=== PATIENT | male | born 1960 | race Caucasian/White ===

== ENCOUNTER → 2020-03-01 11:44 | Outpatient (CLI) | payer OTHER, SELFPAY ==
[2020-03-01 12:42] LABS: Cholesterol 207 mg/dL (140-199); HDL Cholesterol 64 mg/dL (40-60); LDL Cholesterol Calculated 99 mg/dL (<100); Triglycerides 218 mg/dL (35-150)
== END ==
PROVIDERS: PCP Family Medicine; Referring Provider Internal Medicine Cardiovascular Disease; Visit Provider Internal Medicine Cardiovascular Disease
DX: I25.10 Atherosclerotic heart disease of native coronary artery without angina pectoris (principal)
CPT/HCPCS: 36415; 80061

== ENCOUNTER → 2021-03-02 14:05 | Outpatient (CLI) | payer OTHER, SELFPAY ==
[2021-03-02 21:21] LABS: Hep C Virus Ab w/Reflex Quant NEGATIVE s/c (NEGATIVE)
[2021-03-03 08:11] LABS: Alpha 1 Anti Trypsin 129 mg/dL (101-187)
[2021-03-04 14:07] LABS: ANA Screen, IFA Negative (.)
[2021-03-04 16:58] LABS: Smooth Muscle Antibody 11 Units (0-19)
== END ==
PROVIDERS: PCP Family Medicine; Referring Provider Nurse Practitioner; Visit Provider Nurse Practitioner
DX: R79.89 Other specified abnormal findings of blood chemistry (principal)
CPT/HCPCS: 36415; 81256; 82103; 83516; 86038; 86803

== ENCOUNTER → 2024-10-01 11:46 | Outpatient (CLI) | payer OTHER, SELFPAY ==
--- NOTE | 2024-10-01 11:49 | DI.MRI.S_ITS ---
PROCEDURE: MR HEAD/BRAIN WO/W CON INDICATIONS: SEIZURE DISORDER TECHNIQUE: Noncontrast axial T1 spin echo, axial T2 fast spin echo, sagittal and axial FLAIR, axial gradient echo, axial diffusion and ADC, coronal thin-slice T2 FSE through the brain. Optional contrast, followed by axial and coronal and sagittal 3D VIBE or T1 spin echo with fat saturation sequences through the brain. COMPARISON: Outside Film, CT, CT FACIAL BONES WITHOUT CONTRAST, 10/14/2023, 14:13. FINDINGS: Image quality: Excellent. CSF spaces: Ventricles are normal in size and shape. Basal cisterns are patent. No extra-axial fluid collections. Brain: Multiple foci of abnormal T2 weighted hyperintensity can be seen, including within the periventricular deep white matter. A few of the periventricular lesions demonstrate a perpendicular orientation to the lateral ventricles. No definite brainstem lesions or cerebellar lesions are seen. There is involvement of the corpus callosum. A few of the larger lesions demonstrate low signal on T1 weighted imaging. These lesions do not enhance. No intracranial bleeds or mass effects. No abnormal intracranial enhancement. Lindsay-white matter interface appears intact. Diffusion weighted images demonstrate no acute ischemic insults. Brainstem appear normal. Normal intravascular flow voids are present. The hippocampal regions appear normal and symmetric in morphology. Skull and face: Calvarial marrow signal is normal. Orbits appear normal. Sinuses: There is moderate mucosal thickening within the ethmoid air cells, with milder mucosal thickening seen elsewhere within the paranasal sinuses. No abnormal fluid is seen within the mastoid air cells. IMPRESSION: Abnormal brain MRI, with multiple foci of nonenhancing T2 weighted hyperintensity, including involving the corpus callosum. Based upon the imaging appearance, there is strong suspicion for multiple sclerosis. Please correlate with patient history. The hippocampi demonstrate a normal, symmetric appearance. No masses or abnormal enhancement can be seen. Dictated by: Art Landeros M.D. on 10/01/2024 at 16:54 Approved by: Art Landeros M.D. on 10/01/2024 at 16:57
== END ==
PROVIDERS: PCP Family Medicine; Referring Provider Psychiatry & Neurology Neurology; Visit Provider Psychiatry & Neurology Neurology
DX: G40.909 Epilepsy, unspecified, not intractable, without status epilepticus (principal); R93.0 Abnormal findings on diagnostic imaging of skull and head, not elsewhere classified
CPT/HCPCS: 70553; A9579

== ENCOUNTER → 2025-01-30 10:08 | Outpatient (CLI) | payer OTHER, SELFPAY ==
--- NOTE | 2025-01-30 | DI.MRI.S_ITS ---
PROCEDURE: MR CERVICAL SPINE WO/W CON INDICATIONS: Rule out ms TECHNIQUE: Noncontrast sagittal T1 spin echo and T2 fast spin echo, sagittal STIR, sagittal PD fast spin echo, foraminal oblique sagittal T2 fast spin echo, axial gradient echo or T2 fast spin echo through the cervical spine. After the administration of contrast, sagittal and axial T1 spin echo with fat saturation through the cervical spine. COMPARISON: None. FINDINGS: Image quality: Excellent. Alignment and curvature: There is normal bony alignment. Marrow: Marrow demonstrates normal overall signal. Spinal cord: White matter lesions are seen throughout the cervical cord. For example within the posterior aspect of the cord at C1, left aspect of the cord at C3 (/), mid aspect of the cord at C5-C6 (/29), left aspect of the cord C6-C7 (/33). No suspicious intramedullary enhancement. No cerebellar tonsillar herniation. Paraspinous soft tissues: No paravertebral masses or suspicious enhancement. C2-C3: Disc desiccation and minimal posterior disc osteophyte complex. No significant central canal or neural foraminal stenosis. C3-C4: Disc desiccation and posterior disc osteophyte complex. Facet and uncovertebral arthropathy. No significant central canal stenosis. Severe right and moderate left neural foraminal stenosis. C4-C5: Disc desiccation. Facet and uncovertebral arthropathy. No central canal stenosis. Moderate left and mild right neural foraminal stenosis. C5-C6: Disc desiccation and mild posterior disc osteophyte complex. Facet and uncovertebral arthropathy. No significant central canal stenosis. Moderate bilateral neural foraminal stenosis. C6-C7: Disc desiccation. Facet and uncovertebral arthropathy. No central canal stenosis. Mild bilateral neural foraminal stenosis. C7-T1: No central canal or neural foraminal stenosis. IMPRESSION: Multiple white matter lesions throughout the cervical cord without enhancement. Multilevel degenerative changes of the cervical spine as described above. Dictated by: Salvador Coley M.D. on 02/01/2025 at 15:47 Approved by: Salvador Coley M.D. on 02/01/2025 at 15:50
--- NOTE | 2025-01-30 | DI.MRI.S_ITS ---
PROCEDURE: MR THORACIC SPINE WO/W CON INDICATIONS: Rule out ms TECHNIQUE: Noncontrast sagittal T1 spin echo and T2 fast spin echo, sagittal STIR, axial T1 and T2 fast spin echo through the thoracic spine. After the administration of contrast, axial and sagittal T1 spin echo with fat saturation through the thoracic spine. COMPARISON: None. FINDINGS: Image quality: Excellent. Alignment and curvature: There is normal bony alignment. Marrow: Marrow is of normal overall signal. No acute vertebral body compression fractures. Spinal cord: Several thoracic cord lesions, for example at T2 (/), T3-T4 (/), likely at T5-T6 (06/12), T8 (/) and T12 (07/14). No abnormal enhancement is identified. Paraspinous soft tissues: No paravertebral masses or abnormal enhancement. Miscellaneous: Mild multilevel disc desiccation. Central canal and foramina appear widely patent at all scanned levels. IMPRESSION: Several thoracic cord lesions as described above without associated enhancement. Dictated by: Salvador Coley M.D. on 02/01/2025 at 15:51 Approved by: Salvador Coley M.D. on 02/01/2025 at 15:54
--- NOTE | 2025-01-30 | DI.MRI.S_ITS ---
PROCEDURE: MR LUMBAR SPINE WO/W CON INDICATIONS: Rule out ms TECHNIQUE: Noncontrast sagittal T1 spin echo and T2 fast spin echo, sagittal STIR, axial T1 and T2 fast spin echo through the lumbar spine. In cases with scoliosis, additional coronal T2 fast spin echo may be performed. After the administration of contrast, sagittal and axial T1 spin echo with fat saturation through the lumbar spine. COMPARISON: None. FINDINGS: Image quality: Excellent. Alignment and curvature: Minimal anterolisthesis of L4 on L5. Otherwise, normal alignment. Marrow: Mild chronic height loss of the L4 and L5 vertebral bodies. Marrow is of normal overall signal. No acute vertebral body compression fractures. No suspicious marrow enhancement. Spinal cord: Conus medullaris terminates at the L1 level. Visualized spinal cord demonstrates normal signal, without suspicious enhancement. Paraspinous soft tissues: No paravertebral masses or abnormal enhancement. T12-L1: Normal appearance. L1-L2: Normal appearance. L2-L3: Mild facet arthropathy. No central canal or neural foraminal stenosis. L3-L4: Disc desiccation. Mild facet arthropathy. No significant central canal or neural foraminal stenosis. L4-L5: Disc desiccation and mild disc bulge. Mild facet arthropathy. No significant central canal or neural foraminal stenosis. L5-S1: Disc desiccation and moderate height loss. Mild disc bulge. No significant central canal stenosis. Left foraminal disc protrusion. At least moderate left neural foraminal stenosis. No right neural foraminal stenosis. IMPRESSION: Cauda equina nerve roots are normal in size and signal intensity throughout. Degenerative changes of the lumbar spine as described above. At least moderate left neural foraminal stenosis at L5-S1. Otherwise, no significant central canal or neural foraminal stenosis. Dictated by: Salvador Coley M.D. on 02/01/2025 at 15:55 Approved by: Salvador Coley M.D. on 02/01/2025 at 16:03
== END ==
PROVIDERS: PCP Family Medicine; Referring Provider Physician Assistant; Visit Provider Physician Assistant
DX: R90.82 White matter disease, unspecified (principal); G95.9 Disease of spinal cord, unspecified; R29.898 Other symptoms and signs involving the musculoskeletal system; M47.812 Spondylosis without myelopathy or radiculopathy, cervical region; M48.02 Spinal stenosis, cervical region; M47.816 Spondylosis without myelopathy or radiculopathy, lumbar region; M48.061 Spinal stenosis, lumbar region without neurogenic claudication; M51.369 Other intervertebral disc degeneration, lumbar region without mention of lumbar back pain or lower extremity pain; M51.379 Other intervertebral disc degeneration, lumbosacral region without mention of lumbar back pain or lower extremity pain; M51.27 Other intervertebral disc displacement, lumbosacral region; M48.07 Spinal stenosis, lumbosacral region
CPT/HCPCS: 72156; 72157; 72158; A9579